=== PATIENT | male | born 1990 ===

== ENCOUNTER 2016-08-23 12:42 | Emergency (ER) | payer BC ==
[2016-08-23] MEDS ORDERED: fentaNYL CITRATE/PF 50 MCG/ML AMPUL ONE (12:56)
[2016-08-23] MEDS ORDERED: fentaNYL CITRATE/PF 50 MCG/ML AMPUL IV ONE (12:56)
--- NOTE | 2016-08-23 13:01 | ERNOTE ---
Upper Extremity HPI - Narrative Date of Service: 08/23/16 - General Extremities Pain Location: forearm: right Time Seen by Provider: 08/23/16 12:56 - Immun/Allergies/Home Medications Immunizations: IMMUNIZATION HX Immunizations Up to Date Yes Allergies/Adverse Reactions: Allergies Allergy/AdvReac Type Severity Reaction Status Date / Time No Known Allergies Allergy Verified 08/23/16 12:56 Home Medications: HOME MEDICATIONS Cephalexin Monohydrate [Keflex] 500 mg PO QID #40 cap 08/23/16 [Last Taken Unknown] oxyCODONE HCL/ACETAMINOPHEN [Percocet 5 MG/325 MG] 1 tab PO Q4H PRN #20 tab 05/10 [Last Taken Unknown] - History of Present Illness Narrative: Pt. comes in with c/o R wrist and forearm pain after he tripped on a stool and fell to the ground. pt. states that his hand feels numb and he is unable to move his fingers. Pt. denies any recent illness or other recent injury or prehospital treatment. Review of Systems - Review of Systems Constitutional: Present: no symptoms reported. Absent: recent illness, fever, chills, weakness, fatigue, malaise EYE: Present: no symptoms reported ENT: Present: no symptoms reported Respiratory: Present: no symptoms reported. Absent: shortness of breath, cough , wheezing Cardiology: Present: no symptoms reported. Absent: chest pain, palpitations, edema Gastrointestinal/Abdominal: Present: no symptoms reported Genitourinary: Present: no symptoms reported Musculoskeletal: Present: joint pain - R wrist, other - deformity Skin: Present: no symptoms reported. Absent: rash, change in color, change in hair/nails Neurological: Present: no symptoms reported - hand, numbness. Absent: headache , dizziness/light-headedness All Other Systems: All systems neg except as marked - Patient's Past Medical History Patient History - Medical: No pertinent hx Patient History - Cardiac/Respiratory: No pertinent hx Patient History - Cancer: No Hx of Cancer Patient History - Surgical Procedures: No surgical history Patient History - Other: None - Social History Living Situations: home Psych History: No pertinent hx Smoking Status: Never smoker - Immunizations Immunizations Up to Date: Yes Physical Exam - Physical Exam General Appearance: Present: alert, no apparent distress Eye Exam: Normal inspection: bilateral, PERRL: bilateral, EOMI: bilateral Neck: Present: normal inspection, nontender Respiratory: Present: no respiratory distress, normal breath sounds, no accessory muscle use, chest nontender, lungs clear Cardiovascular/Chest: Present: regular rate, rhythm, no murmur, normal peripheral pulses Gastrointestinal/Abdominal: Present: normal bowel sounds, nontender Back Exam: Present: normal inspection, normal range of motion, no CVA tenderness , no vertebral tenderness Extremity Exam: Present: decreased range of motion - R wrist and hand, bony tenderness - R wrist, extremity edema - R wrist Neurological Exam: Present: alert, oriented, normal mood/affect, motor weakness - R hand, other - R hand can feel light touch and painful touch Skin Exam: Present: other - open area puncture wound ED Progress - Date and Time Seen: Date and Time: 08/23/16 14:25 Discussed with paramjit izaguirre and he will set wrist and we will send home with pain medications and have him follow up with ortho in [facility] when he gets home next week. - Vital Signs Patient's Vital Signs:: I have reviewed the patient's vital signs. Vital Signs: Vital Signs 08/23/16 12:46 Temperature 35.7 C L Pulse Rate 70 Respiratory 20 Rate Blood Pressure 99/46 O2 Sat by Pulse 97 Oximetry - X-Ray X-Ray #1 X-Ray: wrist Interpretation: Interp. by me X-ray Comments: distal radial open fracture impacted and displaced. - Progress/Reassessment Chief Complaint: Upper Extremity Injury/Problem Departure Clinical Impression: Radial fracture Qualifiers: Encounter type: initial encounter Radius location: distal Fracture type: open Open fracture type: open type I or II Fracture morphology: other intra- articular Laterality: right Qualified Code(s): S52.571B - Other intraarticular fracture of lower end of right radius, initial encounter for open fracture type I or II - Departure Disposition: Home self-care Condition: Good Instructions: Radial Fracture Additional Instructions: Please follow up with orthopedic of your choice when you get home to [facility]. If you have any problems getting this appointment please call us for help. Prescriptions: Cephalexin Monohydrate [Keflex] 500 mg PO QID #40 cap oxyCODONE HCL/ACETAMINOPHEN [Percocet 5 MG/325 MG] 1 tab PO Q4H PRN #20 tab PRN Reason: Pain
[2016-08-23] MEDS ORDERED: ceFAZolin SODIUM 2 GM in DEXTROSE 5 % IN WATER 100 ML IV ONE ×2 (13:03)
[2016-08-23] MEDS ORDERED: HYDROmorphone HCL 1 MG/ML DISP.SYRIN IV ONE ×2 (13:30→14:13)
[2016-08-23] MEDS ORDERED: RINGERS SOLUTION,LACTATED 1,000 ML IV ONE (13:31)
[2016-08-23] MEDS ORDERED: HYDROmorphone HCL 1 MG/ML DISP.SYRIN ONE ×2 (13:31→14:13)
[2016-08-23] MEDS ORDERED: ceFAZolin SODIUM 2 GM in DEXTROSE 5 % IN WATER 50 ML IV ONE ×2 (13:45)
[2016-08-23] MEDS ORDERED: LIDOCAINE HCL 20 ML VIAL ONE (13:59)
[2016-08-23] MEDS ORDERED: ONDANSETRON HCL/PF 2 MG/ML VIAL ONE (15:23)
[2016-08-23] MEDS ORDERED: ONDANSETRON HCL/PF 2 MG/ML VIAL IV ONE (15:23)
[2016-08-23 15:52] VITALS: BP 126/60
[2016-08-23] MEDS ORDERED: oxyCODONE HCL/ACETAMINOPHEN 1 TAB TABLET ONE (15:56)
[2016-08-23] MEDS ORDERED: oxyCODONE HCL/ACETAMINOPHEN 1 TAB TABLET PO ONE (15:58)
--- NOTE | 2016-08-26 14:33 | CONS ---
- Reason for consultation (1) Radial fracture Date of Service: 08/23/16 HPI - General Date of Service: 08/23/16 Narrative: 26 y/o male with hx fall down an embankment landing on concrete surface. Had immediate onset of pain to the Rt wrist with noted deformity. No other injuries. Presented to [facility] ED for management. ED evaluation with noted displaced distal radius fracture. I was consulted to see. Source: patient Exam Limitations: no limitations - History of Present Illness Timing/Duration: 1/2 hour Severity: moderate Allergies/Adverse Reactions: Allergies No Known Allergies Allergy (Verified 08/23/16 12:56) - Patient's Past Medical History Patient History - Medical: No pertinent hx Patient History - Cardiac/Respiratory: No pertinent hx Patient History - Cancer: No Hx of Cancer Patient History - Surgical Procedures: No surgical history Patient History - Other: None - Social History Living Situations: home Psych History: No pertinent hx Smoking Status: Never smoker - Immunizations Immunizations Up to Date: Yes Physical Examination - Exam Narrative: Orthopedic exam with noted deformity to the Rt wrist. Neuro vascular exam intact. Noted abrashion to the volar ulnar aspect of the wrist. Minimal bleeding noted. No evidence of puncture or full thickness wound noted. No other injuries noted. No pain to the Rt shoulder or elbow. Vital Signs: Vital Signs - Last Taken Temp 35.7 C L 08/23/16 16:06 Pulse 69 08/23/16 16:06 Resp 18 08/23/16 16:06 BP 126/60 08/23/16 16:06 Pulse Ox 100 08/23/16 16:06 O2 Oxygen Delivery Method Room Air - Results and Findings: Narrative: Rt wrist x-rays showing dorsally displaced appox 45 degrees distal radius fracture. No associated ulnar fracture seen. No other bony injury noted. Assesment: Rt distal radius fracture with dorsal displacement Plan: Please refer to procedure note. Fracture was reduced.Advised Pt will need additional procedure for ORIF. Pt is here visiting, and will be going back to [facility]. Advised that he seek orthopedic consultation upon his return in 1 -2 days. Advised to elevate, ice, Prescribed pain meds and PO antibiotics. Pt was given Ancef 2 grams prior to procedure. - Assessments/Findings (1) Radial fracture Problem: Acute Qualifiers: Encounter type: initial encounter Radius location: distal Fracture type: open Open fracture type: open type I or II Fracture morphology: other intra- articular Laterality: right Qualified Code(s): S52.571B - Other intraarticular fracture of lower end of right radius, initial encounter for open fracture type I or II
--- NOTE | 2016-08-26 14:40 | ERNOTE ---
Upper Extremity HPI - Narrative Date of Service: 08/23/16 - General Extremities Pain Location: wrist: right Time Seen by Provider: 08/23/16 12:56 Source: patient, family - Immun/Allergies/Home Medications Immunizations: IMMUNIZATION HX Immunizations Up to Date Yes Allergies/Adverse Reactions: Allergies Allergy/AdvReac Type Severity Reaction Status Date / Time No Known Allergies Allergy Verified 08/23/16 12:56 Home Medications: HOME MEDICATIONS Cephalexin Monohydrate [Keflex] 500 mg PO QID #40 cap 08/23/16 [Last Taken Unknown] Ondansetron [Zofran Odt] 4 mg PO Q6H PRN #20 tab 08/23/16 [Last Taken Unknown] oxyCODONE HCL/ACETAMINOPHEN [Percocet 5 MG/325 MG] 1 tab PO Q4H PRN #20 tab 05/10 [Last Taken Unknown] - History of Present Illness Narrative: Per consultation note - Patient's Past Medical History Patient History - Medical: No pertinent hx Patient History - Cardiac/Respiratory: No pertinent hx Patient History - Cancer: No Hx of Cancer Patient History - Surgical Procedures: No surgical history Patient History - Other: None - Social History Living Situations: home Psych History: No pertinent hx Smoking Status: Never smoker - Immunizations Immunizations Up to Date: Yes ED Progress - Progress/Reassessment Chief Complaint: Upper Extremity Injury/Problem Procedures Right Wrist Anesthesia: 1% Lidocaine, Other - hematoma block I & D Prep: other - chlorhexadine prep Comments:: Following hematoma block to the Rt dorsal wrist. The thumb and index were placed in finger traps. After gentle traction with gravity, I was able to reduce the fracture with confirmation with C arm. Following reduction, pt was placed into an sugartong splint. The abrashion was cleansed and Xerofoam gauze was placed on the abrashion. Definitive films taken for documentation. Pt placed into sling, advised on elevation, ice finger ROM and pain meds as well as PO Keflex. Departure Clinical Impression: Radial fracture - Departure Disposition: Home self-care Condition: Good Instructions: Radial Fracture Additional Instructions: Please follow up with orthopedic of your choice when you get home to [facility]. If you have any problems getting this appointment please call us for help. Prescriptions: Cephalexin Monohydrate [Keflex] 500 mg PO QID #40 cap Ondansetron [Zofran Odt] 4 mg PO Q6H PRN #20 tab PRN Reason: Nausea oxyCODONE HCL/ACETAMINOPHEN [Percocet 5 MG/325 MG] 1 tab PO Q4H PRN #20 tab PRN Reason: Pain
== END 2016-08-23 16:06 | disposition home or self-care (01) ==
LOC: ER 12:42
PROC: 0PSHXZZ Reposition Right Radius, External Approach (ICD-10-PCS; principal; 2016-08-23)
DX: S52.571B Other intraarticular fracture of lower end of right radius, initial encounter for open fracture type I or II (principal); W01.0XXA Fall on same level from slipping, tripping and stumbling without subsequent striking against object, initial encounter; Y93.9 Activity, unspecified; Y92.9 Unspecified place or not applicable
CPT/HCPCS: 24655; 73090; 73110; 96365; 96375; 99284; J2405